=== PATIENT | male | born 1995 | race Caucasian/White ===

== ENCOUNTER 2022-08-12 10:40 | Emergency (ER) | payer MEDICAID, SELFPAY ==
--- NOTE | 2022-08-12 10:41 | ED.MALEGU ---
HPI - Male Genitourinary General Chief complaint: Urogenital-Female Stated complaint: blood in urine Time Seen by Provider: 08/12/22 11:02 Source: patient and RN notes reviewed Mode of arrival: ambulatory Limitations: no limitations History of Present Illness HPI Narrative: 26-year-old male presents concern for long-term dysuria, blood in his semen in urine for the past month. He reports penile discharge. Reports occasional discolored semen. He denies fever, abdominal pain, nausea, vomiting, back pain, urine frequency, urgency. He does not know of any STD exposure but reports he does have unprotected sex MD Complaint: penile discharge and dysuria Related Data Allergies Allergy/AdvReac Type Severity Reaction Status Date / Time cat dander Allergy Intermediate Wheezing Verified 08/12/22 10:51 pollen extracts Allergy Intermediate Throat Verified 08/12/22 10:51 swells cyclobenzaprine Allergy Mild Unknown Verified 08/12/22 10:51 Review of Systems Review of Systems: CONSTITUTIONAL: Denies malaise, chills, sweats, or fever. CARDIOVASCULAR: Denies chest pain, palpitations, or edema. RESPIRATORY: Denies cough or dyspnea. GASTROINTESTINAL: Denies abdominal pain, nausea, vomiting, diarrhea GENITOURINARY: Reports dysuria, discolored semen, blood in his semen. Denies frequency, urgency, suprapubic pressure. Denies flank pain or hematuria. SKIN: Denies rash or itching. MUSCULOSKELETAL: Denies back pain or myalgia. All systems reviewed & are unremarkable except as noted in HPI and below PMFSH Family History Family History Mother Patient's mother is in good health Father Patient's father is in good health Social History Social History Years smoked: 10 Smoking status: Current every day smoker Tobacco type: e-cigarettes/vaping Second hand tobacco smoke exposure: No Alcohol intake: former Substance use: never Comments At time of signature, agree with nursing past medical, surgical, social and family history. There is no relevant family history pertinent to the presenting complaint Exam Narrative: GENERAL: Well-appearing, well-nourished, and in no acute distress. HEAD: Normocephalic. EYES: PERRLA, conjunctivae clear. NECK: Supple. No lymphadenopathy CHEST: Clear to auscultation. No respiratory distress. HEART: Regular rate and rhythm. SKIN: Warm, dry, no rash. NEURO: Alert and oriented x3. PSYCH: Normal mood and affect Course Course Emergency Course: Advised patient that we treat today for potential STI and culture the urine to determine if urinary tract infection is present. Patient does not want to receive antibiotic treatment until he has results of the testing. Patient was advised to avoid intercourse or unprotected intercourse until he has received results of his testing and any necessary treatment. Anticipatory guidance given. Patient agrees to follow-up as directed and is aware of reasons to seek care at the emergency department. Portions of this record may have been created with voice recognition software Level of Care: Express Care Visit Vital Signs Vital signs: Reviewed. MDM - Male Genitourinary MDM Narrative Medical decision making narrative: Exam findings show no acute concerns or changes; patient is non-toxic appearing and is in no distress. Patient is appropriate for outpatient treatment and follow-up. Differential Diagnosis Differential diagnosis: Likely urinary tract infection, urethritis and epididymitis Critical Care Time Critical Care Time Critical Care Time: No Discharge Plan Discharge Clinical Impression: Dysuria Patient Disposition: Home, Self-Care Condition: Stable Instructions: Safe Sex Practices (ED), Dysuria (ED) Additional Instructions: We will send a urine culture to the lab; if the culture identifies an urinary tract organism that the [facility]
[2022-08-12 10:48] VITALS: BP 144/76; PULSE 73; RESP 16; TEMP 37.3; O2SAT 99
== END 2022-08-12 11:18 | disposition home or self-care (01) ==
PROVIDERS: Emergency Provider Nurse Practitioner; PCP Physician Assistant
DX: R30.0 Dysuria (principal); F17.290 Nicotine dependence, other tobacco product, uncomplicated
CPT/HCPCS: 81003; 87086; 87491; 87591; 87661; 99213; G0463

== ENCOUNTER 2022-09-19 13:20 | Emergency (ER) | payer MEDICAID, SELFPAY ==
[2022-09-19 13:26] VITALS: BP 137/82; PULSE 73; RESP 16; TEMP 36.4; O2SAT 99
--- NOTE | 2022-09-19 13:53 | ED.MALEGU ---
HPI - Male Genitourinary General Chief complaint: Urogenital-Male Stated complaint: STD Time Seen by Provider: 09/19/22 13:25 Source: patient Mode of arrival: ambulatory Limitations: no limitations History of Present Illness HPI Narrative: Patient is a 26-year-old male that presents with burning with urination and penile discharge. Was treated August 12 for STD and states symptoms never completely resolved. reports compliance with antibiotics and partners were also treated. Related Data Allergies Allergy/AdvReac Type Severity Reaction Status Date / Time cat dander Allergy Intermediate Wheezing Verified 09/19/22 13:34 pollen extracts Allergy Intermediate Throat Verified 09/19/22 13:34 swells cyclobenzaprine Allergy Mild Unknown Verified 09/19/22 13:34 Review of Systems Review of Systems: CONSTITUTIONAL: Denies malaise, chills, sweats, or fever. EYES: Denies visual changes, redness, or discharge. ENT: Denies rhinorrhea, congestion, sinus pain, otalgia or sore throat. CARDIOVASCULAR: Denies chest pain, palpitations, or edema. RESPIRATORY: Denies cough or dyspnea. GASTROINTESTINAL: Denies abdominal pain, nausea, vomiting, diarrhea, bloody, or mucous stools. GENITOURINARY: reports dysuria denies hematuria. reports discharge from penis after showers and underwear SKIN: Denies rash or itching. MUSCULOSKELETAL: Denies back pain, joint pain, or myalgia. NEUROLOGIC: Denies numbness, weakness, or headache. PSYCHIATRIC: Denies anxiety or depression. All systems reviewed & are unremarkable except as noted in HPI and below PMFSH Family History Family History Mother Patient's mother is in good health Father Patient's father is in good health Social History Social History Years smoked: 10 Smoking status: Current every day smoker Tobacco type: e-cigarettes/vaping Second hand tobacco smoke exposure: No Alcohol intake: former Substance use: never Comments At time of signature, agree with nursing past medical, surgical, social and family history. There is no relevant family history pertinent to the presenting complaint. Exam Narrative: GENERAL: Well-appearing, well-nourished, and in no acute distress. HEAD: Normocephalic, atraumatic. EYES: PERRLA, conjunctivae clear. ENT: Nares clear Mucous membranes moist. NECK: Supple. No lymphadenopathy CHEST: No respiratory distress. Clear to auscultation. No bony deformities, no asymmetry. Speaks in full sentences. HEART: Regular rate and rhythm. No murmur heard. ABDOMEN: Soft, nontender, nondistended, normal active bowel sounds, no palpable masses. EXTREMITIES: Normal range of motion. No edema. Normal strength and sensation. SKIN: Warm, dry, no rash. NEURO: Alert and oriented x3. No focal deficits. PSYCH: Normal mood and affect Course Course Emergency Course: Patient is aware of diagnosis, understands and agrees to treatment plan. Anticipatory guidance given. Patient agrees to follow-up as directed and is aware of reasons to seek care at the emergency department. Portions of this record may have been created with voice recognition software Level of Care: Express Care Visit Vital Signs Vital signs: Vital Signs Temperature 36.4 C L 09/19/22 13:26 Pulse Rate 73 09/19/22 13:26 Respiratory Rate 16 09/19/22 13:26 Blood Pressure 137/82 09/19/22 13:26 Pulse Oximetry 99 09/19/22 13:26 Oxygen Delivery Room Air 09/19/22 13:26 Temperature 36.4 C L 09/19/22 13:26 Pulse Rate 73 09/19/22 13:26 Respiratory Rate 16 09/19/22 13:26 Blood Pressure 137/82 09/19/22 13:26 Pulse Oximetry 99 09/19/22 13:26 Oxygen Delivery Room Air 09/19/22 13:26 Reviewed MDM - Male Genitourinary Lab Data Labs: Lab Results 09/19/22 09/19/22 Range/Units 13:32 13:32 C.trachomatis RNA (TMA) Pending N.gonorrhoeae RNA (TMA)
[2022-09-19] MEDS: cefTRIAXone 1 GM, LIDOCAINE HCL 1% LOCAL INJ 2.1 ML IM (14:02)
== END 2022-09-19 14:15 | disposition home or self-care (01) ==
PROVIDERS: Emergency Provider Nurse Practitioner Family; PCP Physician Assistant
DX: R30.0 Dysuria (principal); R36.9 Urethral discharge, unspecified; Z20.2 Contact with and (suspected) exposure to infections with a predominantly sexual mode of transmission; F17.290 Nicotine dependence, other tobacco product, uncomplicated
CPT/HCPCS: 81003; 87491; 87591; 87661; 96372; 99213; 99214; G0463; J0696

== ENCOUNTER 2024-06-18 12:12 | Emergency (ER) | payer MEDICAID, SELFPAY ==
[2024-06-18 12:50] VITALS: BP 119/75; PULSE 72; RESP 15; TEMP 37.5; O2SAT 100
--- NOTE | 2024-06-18 13:17 | ED.URI ---
HPI - URI/Sore Throat General Chief Complaint: Upper Respiratory Infection Stated Complaint: sore throat,FOSTER/migraine right side,cough work note Time Seen by Provider: 06/18/24 13:17 Source: patient, RN notes reviewed and old records reviewed Mode of arrival: ambulatory Limitations: no limitations History of Present Illness HPI Narrative: Patient presents with complaints of sinus pain and congestion that is been present for couple of weeks. He reports over the past couple days he has had more body aches and sore throat that he initially had. He reports postnasal drainage, fatigue. He does not believe he has been running a fever, states he does get chills and sweats occasionally. He denies any injury or trauma. He voices no other concerns or complaints at this time. Related Data Allergies Allergy/AdvReac Type Severity Reaction Status Date / Time cat dander Allergy Intermediate Wheezing Verified 10/31/22 14:54 pollen extracts Allergy Intermediate Throat Verified 10/31/22 14:54 swells cyclobenzaprine Allergy Mild Unknown Verified 10/31/22 14:54 Review of Systems Review of Systems: All systems reviewed & are unremarkable except as noted in HPI and below Constitutional: Constitutional: Reports as per HPI, Reports no additional constitutional complaints, Reports chills, Reports excessive sweating, Reports fatigue, Reports headache(s) and Reports lethargy ENT: Reports system reviewed and no additional complaints, except as documented, Reports facial pain, Reports headache(s), Reports sinus pain and Reports sinus pressure Cardiovascular: Cardiovascular: Reports no additional cardiovascular complaints Respiratory: Respiratory: Reports no additional respiratory complaints and Reports cough Gastrointestinal: Gastrointestinal: Reports no additional gastrointestinal complaints [facility] Family History Family History Mother Patient's mother is in good health Father Patient's father is in good health Social History Social History Years smoked: 10 Smoking status: Current every day smoker Tobacco type: e-cigarettes/vaping Second hand tobacco smoke exposure: No Alcohol intake: former Substance use: never Comments At the time of my signature, I reviewed and agree with the nursing past medical, surgical, social, and family history. There is no relevant family history pertinent to the patient complaint. Exam Const: General: cooperative, no acute distress, alert and awake Orientation/consciousness: oriented to person, oriented to place and oriented to time HENMT: Head: normal to inspection Ears: TM abnormal with fluid behind the TM bilateral Face/Nose/Sinus: sinus tenderness Resp: Effort & Inspection: normal respiratory effort and able to speak in complete sentences Auscultation: clear to auscultation bilaterally, no crackles, no rales, no rhonchi and no wheezes Cardio: Palpation: normal PMI Rate: regular rate Rhythm: regular rhythm Heart sounds: S1 normal heart sound present and S2 normal heart sound present Neuro: General: oriented to person, oriented to place and oriented to time Cranial nerves: Yes CN's II-XII intact bilaterally Psych: Appearance: grossly normal Thought process: Normal thought process present Insight: Good insight present (Psych) Judgement: Good judgement present (Psych) Course Course Level of Care: Express Care Visit Vital Signs Vital signs: Vital Signs Temperature 99.5 F 06/18/24 12:50 Pulse Rate 72 06/18/24 12:50 Respiratory Rate 15 06/18/24 12:50 Blood Pressure 119/75 06/18/24 12:50 Pulse Oximetry 100 06/18/24 12:50 Oxygen Delivery Room Air 06/18/24 12:50 Temperature 99.5 F 06/18/24 12:50 Pulse Rate 72 06/18/24 12:50 Respiratory Rate 15 06/18/24 12:50 Blood Pressure 119/75 06/18/24 12:50 Pulse Oximetry 100 06/18/24 12:50 Oxygen Delivery Room Air 06/18/24 12:50 Reviewed MDM - URI/Sore Throat MDM Narrative Medical decision making narrative: Negative flu, negative COVID, negative strep. Sinus tenderness. Treat for sinusitis given to recent of symptoms. Patient nontoxic appearing, stable for discharge home on p.o. antibiotic therapy. Supportive care measures discussed. Work note provided. Discharge instructions reviewed with patient, as well as provided in writing per nursing staff. The instructions also include specific and strict return/GO TO THE ER as well as f/u information. All questions have been answered, and the patient deny any further questions with discharge and discharge plan. Some parts of this dictation were generated by voice recognition software and may contain typographical and/or grammatical inaccuracies. Differential Diagnosis Differential diagnosis: Likely upper respiratory infection, otitis media and sinusitis Medical Records Attestation: I reviewed the patient's medical records. Lab Data Attestation: I reviewed the patient's lab results. Discharge Plan Discharge Clinical Impression: Sinusitis Qualifiers: Sinusitis location: maxillary Chronicity: acute Recurrence: not specified as recurrent Qualified Code(s): J01.00 - Acute maxillary sinusitis, unspecified Patient Disposition: Home, Self-Care Condition: Stable Instructions: Antibiotic Form, Sinusitis (ED) Additional Instructions: Take medications as prescribed. Follow-up with primary care provider. Emergency department for new or worse symptoms Patient Language: Japanese Prescriptions: New amoxicillin-pot clavulanate 875-125 mg tablet 1 tablet PO Q12H Qty: 20 0RF No Action doxycycline hyclate 100 mg capsule 100 mg PO BID 7 Days Qty: 14 0RF azithromycin 500 mg tablet 1,000 mg PO ONCE Qty: 2 0RF escitalopram oxalate [Lexapro] 20 mg tablet 20 mg PO DAILY Qty: 90 1RF Follow-up/Referrals: Debora,BEATRICE PurcellC [Primary Care Provider] - 2 Days Stand Alone Forms: Work/School Release IP Time of Disposition: 13:25
[2024-06-18 13:40] LABS: EDINFLUASCREEN Negative (Negative); EDINFLUBSCREEN Negative (Negative); EDSTREPNEGPOS1 Negative (Negative)
[2024-06-19 07:32] LABS: EDCOVIDSCREEN Negative (Negative)
== END 2024-06-18 13:39 | disposition home or self-care (01) ==
PROVIDERS: Emergency Provider Nurse Practitioner Family; PCP Physician Assistant
DX: J01.00 Acute maxillary sinusitis, unspecified (principal); Z20.822 Contact with and (suspected) exposure to COVID-19; F17.290 Nicotine dependence, other tobacco product, uncomplicated
CPT/HCPCS: 87426; 87804; 87880; 99213; G0463

== ENCOUNTER 2025-02-13 10:05 | Emergency (ER) | payer OTHER, SELFPAY ==
--- NOTE | 2025-02-13 10:07 | ED.EYEPROB ---
HPI - Eye Problem General Chief complaint: Eye Problems Stated complaint: Eye Irritation Time Seen by Provider: 02/13/25 10:07 Source: patient Mode of arrival: ambulatory Limitations: no limitations History of Present Illness HPI Narrative: Patient is a 29-year-old male who presents with left eye irritation for 1 day. Reports he flushed his eye out and feels better with the lower eyelid is still little puffy and irritated. Denies any drainage, redness, blurred vision, fevers, chills. Related Data Allergies Allergy/AdvReac Type Severity Reaction Status Date / Time cat dander Allergy Intermediate Wheezing Verified 02/13/25 10:28 pollen extracts Allergy Intermediate Throat Verified 02/13/25 10:28 swells cyclobenzaprine Allergy Mild Hallucinati Verified 02/13/25 10:28 ng Review of Systems Review of Systems: All systems reviewed & are unremarkable except as noted in HPI and below Constitutional: Constitutional: Denies body ache(s), Denies fever(s), Denies headache(s), Denies malaise and Denies weakness Eyes: Eyes: Denies blurry vision, Denies eye discharge, Reports irritation, Reports itchy eyes, Denies loss of vision and Denies eye pain ENT: Denies otalgia, Denies headache(s), Denies nasal discharge, Denies sinus pain and Denies sore throat Cardiovascular: Cardiovascular: Denies chest pain, Denies irregular heart rhythm and Denies dyspnea Respiratory: Respiratory: Denies dyspnea Gastrointestinal: Gastrointestinal: Denies abdominal pain, Denies diarrhea, Denies nausea and Denies vomiting Musculoskeletal: Musculoskeletal: Denies back pain, Denies myalgias and Denies arthralgias Integumentary/Breasts: Skin/Breast: Denies pruritus and Denies rash Neurologic: Denies headache(s), Denies loss of vision and Denies weakness Psychiatric: Psychiatric: Reports no additional psychiatric complaints Allergic/Immunologic: Allergic/Immunologic: Reports itchy eyes PMFSH Family History Family History Mother Patient's mother is in good health Father Patient's father is in good health Social History Social History Years smoked: 10 Smoking status: Current every day smoker Tobacco type: e-cigarettes/vaping Second hand tobacco smoke exposure: No Alcohol intake: former Substance use: never Comments At time of signature, agree with nursing past medical, surgical, social and family history. There is no relevant family history pertinent to the presenting complaint. Exam Const: General: cooperative, healthy appearing, comfortable, no acute distress and well nourished Nutritional Appearance: well nourished Orientation/consciousness: patient oriented x3 Limitations: no limitations HENMT: Head: normal to inspection, normocephalic and atraumatic Ears: external ears normal Face/Nose/Sinus: Normal external nose present, normal facial exam and face symmetric Face and sinus: normal facial exam and face symmetric Mouth: Yes lip normal Eyes: General: appearance normal, both eyes and all related structures Visual Dunbar: normal visual dunbar by confrontation Alignment and Position: alignment normal and position normal Periorbital: periorbital findings normal Eyelids: eyelids normal Conjunctivae: conjunctival abnormality left conjunctival injection diffuse Sclera: sclerae normal Pupils: Equal, round and reactive pupils present EOM: EOMs intact bilaterally Direct Ophthalmoscopy: no photophobia Other: No hyphema, no foreign body under the lids. Neck: Neck: normal visual inspection, full ROM, no lymphadenopathy and no meningeal signs Chest: Chest palpation & inspection: normal inspection of the chest Resp: Effort & Inspection: normal respiratory effort and able to speak in complete sentences Auscultation: clear to auscultation bilaterally Cardio: Rate: regular rate Rhythm: regular rhythm Heart sounds: S1 normal heart sound present and S2 normal heart sound present GI: Inspection: normal to inspection Skin: General skin exam: normal color and no rashes or lesions noted Neuro: General: patient oriented x3, moves all extremities and no meningeal signs Cranial nerves: Yes Equal, round and reactive pupils present Speech: normal speech Gait exam (Neuro): Normal gait present Extrem: General: normal to inspection, full ROM and no edema Psych: Appearance: grossly normal and well kempt Mental Status: mental status grossly normal Speech and movement: Normal speech and movement present Affect: normal affect Attitude: cooperative Thought process: Normal thought process present Course Course Emergency Course: Patient is aware of diagnosis, understands and agrees to treatment plan. Anticipatory guidance given. Patient agrees to follow-up as directed and is aware of reasons to seek care at the emergency department. Portions of this record may have been created with voice recognition software Level of Care: Express Care Visit Vital Signs Vital signs: Reviewed MDM - Eye Problem MDM Narrative Medical decision making narrative: Exam findings show no acute concerns or changes; patient is non-toxic appearing and is in no distress.? Patient is appropriate for outpatient treatment and follow-up Discharge instructions reviewed with patient and family, as well as provided in writing per nursing staff. The instructions also include specific and strict return/GO TO THE ER as well as f/u information. All questions have been answered, and the patient deny any further questions with discharge and discharge plan. Consideration of the following conditions may be warranted for the presenting problem, they are not final diagnoses: Bacterial conjunctivitis, allergic conjunctivitis, viral conjunctivitis, foreign body, blepharitis, chalazion, hordeolum, corneal abrasion. Discharge Plan Discharge Clinical Impression: Conjunctivitis Qualifiers: Conjunctivitis type: acute Acute conjunctivitis type: bacterial Laterality: left Qualified Code(s): H10.32 - Unspecified acute conjunctivitis, left eye Patient Disposition: Home Condition: Stable Instructions: Conjunctivitis (ED) Additional Instructions: Eye drops as prescribed. -Do this for 3 to 4 days until all redness and discharge has disappeared. -Cold compresses to the affected eye for comfort -May need warm compresses to remove debris in the morning -When cleaning the eyes used a washcloth/cotton ball in one direction then change washcloths/cotton ball before using it on another eye. -Do not share medicine--do not touch the eye with the medicine -Alternate or take Tylenol or ibuprofen as directed in the bottle for pain -Avoid screen time--television, computer, tablet or phone. -Practice good handwashing and hygiene to prevent spread of infection Follow-up with PCP or patcher helper if condition is not improving in 2-3days. Go to the emergency room if you have pain behind your eye, pressure behind her eye, difficulty seeing, or other severe symptoms Patient Language: Vietnamese Prescriptions: New ofloxacin 0.3 % drops See Rx Instructions .ROUTE .COMPLEX Qty: 5 0RF Rx Instructions: put 1-2 drps into left eye every 2-4 h x 2 days, then 1-2 drps 4 times/day days 3-7 Follow-up/Referrals: Johnathon Moreno MD [Physician] - 3 Days Stand Alone Forms: Work/School Release IP Time of Disposition: 10:49
[2025-02-13 10:12] VITALS: BP 119/76; PULSE 64; RESP 18; TEMP 37; O2SAT 100
== END 2025-02-13 10:57 | disposition home or self-care (01) ==
PROVIDERS: Emergency Provider Nurse Practitioner Family
DX: H10.32 Unspecified acute conjunctivitis, left eye (principal); F17.290 Nicotine dependence, other tobacco product, uncomplicated
CPT/HCPCS: 99213; G0463